=== PATIENT | female | born 2005 | race Caucasian/White ===

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

== ENCOUNTER 2025-09-01 15:50 | Emergency (ER) | payer OTHER, SELFPAY ==
[2025-09-01 16:23] VITALS: BP 147/87; PULSE 87; RESP 16; TEMP 37; O2SAT 98; BMI 47.9
--- OUTSIDE RECORDS SUMMARY | 2025-09-01 16:35 | XMS_ITS | Clinical Summary ---
Author Organization [facility] Address [address] [place] [address] Phone Care Team Providers Care Gusset Stitcher Name Role Phone James Helm MD Primary Care Physician [ ] Conditions or Problems No information available. Medications No information available. Medications Administered No information available. Allergies, Adverse Reactions, Alerts No information available. Results No information available. Plan of Care No information available. Procedures No information available. Vital Signs No information available. Immunizations No information available. Advance Directives No information available.
--- OUTSIDE RECORDS SUMMARY | 2025-09-01 16:35 | XMS_ITS | Clinical Summary ---
[facility] Address [address] [place] [address] Care Team Providers Care Checkout Operator Name Role Phone Provider, No Known Primary Care Provider Unavail able Allergies Active Allergy Reactions Criticality Noted Date Comments Penicillins Hives 07/14/2024 Medications famotidine (PEPCID) 20 MG tablet Take 1 tablet by mouth Daily. 04/03/2024 Active Vit-Fe Fumarate-FA ( vitamin 27-0.8) 27-0.8 MG tablet tablet Take 1 tablet by mouth Daily. Active Active Problems Problem Noted Date Diagnosed Date Problem with growth not found 07/17/2024 Social History Tobacco Use Types Packs/Day Years Used Date Smoking Tobacco: Never Smokeless Tobacco: Never Tobacco Cessation:Counseling Given: Not Answered Alcohol Use Standard Drinks/Week Comments Never 0 (1 standard drink = 0.6 oz pur e alcohol) Comments No Sex and Gender Information Value Date Recorded Sex Assigned at Not on file Legal Sex Female 5:21 PM EDT Gender Identity Not on file Sexual Orientation Not on file Last Filed Vital Signs Vital Sign Reading Time Taken Comments Blood Pressure 137/77 07/14/2024 11:26 AM EDT Pulse - - Temperature - - Respiratory Rate - - Oxygen Saturation - - Inhaled Oxygen Concentration - - Weight 134 kg (295 lb) 07/14/2024 11:26 AM EDT Height 167.6 cm (5' 6 ) 07/14/2024 11:29 AM EDT Body Mass Index 47.61 07/14/2024 11:26 AM EDT Plan of Treatment Health Maintenance Due Date Last Done Comments MENINGOCOCCAL B VACCINE (1 of 2 - Standard) 2021 ANNUAL PHYSICAL 07/02/2024 CHLAMYDIA SCREENING 07/02/2024 HEPATITIS C SCREENING 07/02/2024 INFLUENZA VACCINE 05/08/2025 08/24/2008 TDAP/TD VACCINES (2 - Td or Tdap) 07/19/2026 07/19/2016 Pneumococcal Vaccine 0-49 Completed 2007, 01/14/2007, 03/09/2006, Additional history exists MENINGOCOCCAL VACCINE Aged Out 07/19/2016 No aleks jean eligible based on patient's age to complete this topic HPV VACCINES Completed 05/14/2018, 01/23/2017 Insurance [facility] Care Teams Checkout Operator Relationship Specialty Start Date End Date Provider, No Known [facility] [place] [address] PCP - General 07/02/24
--- NOTE | 2025-09-01 16:44 | ED_ITS ---
<Statement entered by Colton Mojica MD - 09/02/25 11:19> I was consulted by the ROBE, and we discussed the complexity of the problems being addressed. I approve the treatment and management plan for this patient's care in the emergency department, thus performing a substantive portion of the medical decision making. Colton Mojica MD Discharge Plan Disposition Chief Complaint: Abdominal Pain Prescriptions Prescriptions: No Action promethazine 25 mg tablet 25 mg PO TIDP PRN (Reason: Nausea And Vomiting) Patient Comments: TAKE 1 TABLET BY MOUTH THREE TIMES DAILY NEEDED FOR NAUSEA AND VOMITING sulfamethoxazole-trimethoprim [Bactrim DS] 800-160 mg tablet 1 tab PO BID 7 Days Qty: 14 0RF cephalexin 500 mg capsule 1,000 mg PO BID 7 Days Qty: 28 0RF ondansetron 4 mg tablet,disintegrating 4 mg PO Q8H PRN (Reason: nausea and vomiting) 4 Days Qty: 12 0RF famotidine [Pepcid] 20 mg tablet 20 mg PO DAILY Qty: 30 0RF cefdinir 300 mg capsule 300 mg PO BID 7 Days Qty: 14 0RF Referrals Follow up/Referrals: Provider,Referral, [Primary Care Provider, Medical] - See instructions Instructions Patient Instructions: DI for Acute Abdominal Pain Print Language Print Language: Swedish Discharge ED Provider: Colton Mojica General Adult HPI <Rylie Reyes (ED), VENDING MACHINE TECHNICIAN - Last Filed: 09/01/25 18:26> General Chief complaint: Abdominal Pain Stated complaint: abdominal pain,back pain,headaches Time Seen by Provider: 09/01/25 16:31 Mode of Arrival: Ambulatory Source of Information: Patient Description of Symptoms (Recalled from ER Triage Doc. by RN): pt to the ED with bilateral flank/abdominal pain x 3 weeks. pt describes it as a stabbing pain that comes and goes. pt also reports an intermitten headache over the last 2 days. pt also stated she took a test kast night and it was positive. History of Present Illness HPI narrative: 20-year-old female presents to the ED with complaint of bilateral flank pain that is sore when she moves around and stretches . She says she does have a headache and nausea as well. No vomiting or diarrhea. She has had no urinary symptoms. She says she is she did take a test that was positive last night. . However she did not tell me in triage that she was the nursing staff actually told me. Related Data Home Medications ?Medication ?Instructions ?Recorded ?Confirmed promethazine 25 mg tablet 25 mg PO TIDP PRN Nausea And 04/02/24 04/02/24 Vomiting Previous Rx's ?Medication ?Instructions ?Recorded cefdinir 300 mg capsule 300 mg PO BID 7 days #14 cap s 04/03/24 famotidine 20 mg tablet (Pepcid) 20 mg PO DAILY #30 ta bs 04/03/24 ondansetron 4 mg disintegrating 4 mg PO Q8H PRN nausea and 04/03/24 tablet vomiting 4 days #12 tabs cephalexin 500 mg capsule 1,000 mg (2 x 500 mg) PO BID 7 09/09/24 days #28 caps sulfamethoxazole 800 1 tab PO BID 7 days #14 tabs 09/09/24 mg-trimethoprim 160 mg tablet (Bactrim DS) Allergies Allergy/AdvReac Type Severity Reaction Status Date / Time Penicillins Allergy Verified 02/27/24 15:31 PFS <Rylie Reyes (ED), VENDING MACHINE TECHNICIAN - Last Filed: 09/01/25 18:26> PFS Disclaimer: The information contained in this section may have been updated after the patient was seen, as this information can be updated by other users. Medical History Urinary tract infection Migraine Hormone imbalance Surgical History No significant past surgical history Family History Grandmother Cancer Other Diabetes Social History Smoking Status: Never smoker alcohol intake: former current occupational status: unemployed Travel in the last 8 weeks?: None Have you lived/traveled outside US in past 30 days?: Yes Contact w/someone who lives/traveled outside US past 30 days?: No Exposure to someone with infectious disease in past 14 days?: No Do you have a fever (greater than 100.4 F or 38 C)?: Yes Have you tested positive for COVID-19?: No Exposed to someone with COVID-19 in past 14 days?: No Do you have a sore throat?: Yes Do you have a cough?: Yes Do you have any weakness?: Yes Do you have any diarrhea?: No Are you experiencing any unusual bleeding?: No Do you have any muscle aches/pain?: No Do you have any abdominal pain?: No Are you experiencing loss of taste or smell?: No Other Medical History Have you received the Flu Vaccine for this season: No Have you received the Pneumonia Vaccine: No <Rylie Reyes (ED), VENDING MACHINE TECHNICIAN - Last Filed: 09/01/25 18:26> ROS Obtained: Yes Systems reviewed as appropriate & no additional complaints except as documented Constitutional Constitutional: Reports as per HPI Physical Exam <Rylie Reyes (ED), VENDING MACHINE TECHNICIAN - Last Filed: 09/01/25 18:26> General General appearance: alert and in no apparent distress Head Head exam: normocephalic Eye Eye exam: Present PERRL and EOMI ENT ENT exam: Present normal oropharynx and mucous membranes moist Neck Neck exam: Present full ROM and trachea midline Respiratory Respiratory exam: Present normal lung sounds bilaterally Cardiovascular Cardiovascular exam: Present regular rate, normal rhythm, normal heart sounds, +S1 and +S2 Abdominal Exam Abdominal exam: Present soft and normal bowel sounds Extremities Exam Extremities exam: Present normal inspection, full ROM and normal capillary refill Back Exam Back exam: Present normal inspection Neurological Exam Neurological exam: Present alert and oriented X3 Skin Skin exam: Present warm and dry Medical Decision Making <Rylie Reyes (ED), VENDING MACHINE TECHNICIAN - Last Filed: 09/01/25 18:26> Medical Records Screening: Per USPSTF and CDC recommendations, given the prevalence of disease in our region, it is our hospital?s policy to screen for HIV and viral Hepatitis for all patients aged 18 and over and those with ongoing risk factors. Vik Inquiry Pt receiving controlled substance: No Vik was queried for this patient: No Vital Signs: 09/01/25 16:23 Temperature 98.6 F Temperature Source Oral Pulse Rate [Left Radial] 87 Respiratory Rate 16 Blood Pressure [Right Arm] 147/87 H Blood Pressure Mean [Right Arm] 107 Blood Pressure Source [Right Arm] Automatic Cuff Blood Pressure Position [Right Arm] Sitting 02 Sat by Pulse Oximetry 98 Oxygen Delivery Method Room Air Lab Data Lab Results 09/01/25 16:30: Urine Color Yellow, Urine Appearance Sl cloudy, Urine pH 6.5, Ur Specific [place] 1.020, Urine Protein Negative, Urine Glucose (UA) Negative, Urine Ketones Negative, Urine Blood Negative, Urine Nitrate Negative, Urine Bilirubin Negative, Urine Urobilinogen 0.2, Ur Leukocyte Esterase Negative, Urine RBC 10-20, Urine WBC 20-50, Ur Squamous Epith Cells 50-100, Urine Bacteria 4+ 09/01/25 16:41: SARS-CoV-2 (PCR) Not detected, Influenza A Untype (PCR) Not detected, Influenza Type B (PCR) Not detected 09/01/25 16:49: WBC 9.9, RBC 5.22, Hgb 14.4, Hct 42.5, MCV 81.4, MCH 27.6, MCHC 33.9, RDW 13.1, Plt Count 229, MPV 10.9 H, Neut % (Auto) 71.2, Lymph % (Auto) 21.5, [place] % (Auto) 6.2, Eos % (Auto) 0.6, Baso % (Auto) 0.4, Neut # (Auto) 7.1, Lymph # (Auto) 2.1, [place] # (Auto) 0.6, Eos # (Auto) 0.1, Baso # (Auto) 0.0, S odium 134 L, Potassium 4.2, Chloride 103, Carbon Dioxide 21 L, Anion Gap 14.2, BUN 10, Creatinine 0.60, Estimated Creat Clear 140, Estimated GFR 127, Est GFR ( Amer) 154, Glucose 83, Calcium 9.5, Magnesium 2.0, Total Bilirubin 1.3, AST 41 H, ALT 23, Alkaline Phosphatase 64, Total Protein 8.5 H, Albumin 5.1 H, G lobulin 3.4 H, Albumin/Globulin Ratio 1.5, Lipase 56, HCG, Quant [id number] H 09/01/25 16:49 09/01/25 16:49 Orders (Tests/Meds): ED MEDICATIONS Generic Name Dose Route Start Last Admin Trade Name Freq PRN Reason Stop Dose Admin Sodium Chloride 8 ml 09/01/25 16:36 Sodium Chloride 0.9% 10ml Vial IV 10/01/25 16:35 NEEDED PRN dilute pepcid Discontinued Medications Generic Name Dose Route Start Last Admin Trade Name Freq PRN Reason Stop Dose Admin Ondansetron HCl 4 mg 09/01/25 16:41 09/01/25 16:57 Ondansetron 4mg/2ml Vial IV 09/01/25 16:42 4 mg ONCE ONE Administration ORDERS Category Date Time Status POCUS Point of Care (ER Only) Stat Exams 09/01/25 18:14 Ordered Beta HCG, Quant [HCG,Quantitative] Stat Lab 09/01/25 16:49 Completed CBC [Complete Blood Count Auto Diff] Stat Lab 09/01/25 16:49 Completed Comprehensive Metabolic Panel Stat Lab 09/01/25 16:49 Completed Lipase Stat Lab 09/01/25 16:49 Completed Magnesium Stat Lab 09/01/25 16:49 Completed Rapid PCR Covid and Flu A/B Stat Lab 09/01/25 16:41 Completed Urinalysis and Microscopic Stat Lab 09/01/25 16:30 Completed Urine Culture Stat Micro 09/01/25 16:30 Received Medical Decision Narrative: patient is a 20-year-old female presenting to the emergency department for evaluation of bilateral flank pain. Patient is hemodynamically stable and nontoxic-appearing upon arrival, afebrile. Differential diagnosis includes musculoskeletal pain, related pain. Workup will be conducted with hematologic labs. Initial inventions include crystalloid bolus, analgesics, antibiotics. Initial workup reviewed by me hematologic labs are remarkable for Normal white count at 9.9, normal H&H, sodium was 134 just slightly low normal BUN and creatinine urine showed 50-100 squamous cells and 4+ bacteria and no blood in her urine. I feel like with the flank pain if this was a kidney stone she would have blood in her urine. I feel like if this was a problem with an early loss she did have blood in her urine as well. She has no pelvic pain which also has been attempted and that she is having no early loss symptoms. she is not having any UTI symptoms. Her white count is normal and other lab work is reassuring. Initially was going to get a scan to make sure her kidneys were fine but was unable to do that as she is and I do not want to take that risk. With being so early with her test just being positive yesterday she would not be positive on ultrasound at this time., Patient to follow-up with her PCP for new OB. Will give treatment for UTI since she does have a positive . Dr. Mojica did a bedside ultrasound and had confirmation of good heart rate and IUP. Patient is safe for discharge home she will follow-up with Dr. De Leon or Dr. Agarwal outpatient. <Colton Mojica MD - Last Filed: 09/01/25 18:26> Vital Signs: 09/01/25 16:23 Temperature 98.6 F Temperature Source Oral Pulse Rate [Left Radial] 87 Respiratory Rate 16 Blood Pressure [Right Arm] 147/87 H Blood Pressure Mean [Right Arm] 107 Blood Pressure Source [Right Arm] Automatic Cuff Blood Pressure Position [Right Arm] Sitting 02 Sat by Pulse Oximetry 98 Oxygen Delivery Method Room Air Lab Data Lab Results 09/01/25 16:30: Urine Color Yellow, Urine Appearance Sl cloudy, Urine pH 6.5, Ur Specific [place] 1.020, Urine Protein Negative, Urine Glucose (UA) Negative, Urine Ketones Negative, Urine Blood Negative, Urine Nitrate Negative, Urine Bilirubin Negative, Urine Urobilinogen 0.2, Ur Leukocyte Esterase Negative, Urine RBC 10-20, Urine WBC 20-50, Ur Squamous Epith Cells 50-100, Urine Bacteria 4+ 09/01/25 16:41: SARS-CoV-2 (PCR) Not detected, Influenza A Untype (PCR) Not detected, Influenza Type B (PCR) Not detected 09/01/25 16:49: WBC 9.9, RBC 5.22, Hgb 14.4, Hct 42.5, MCV 81.4, MCH 27.6, MCHC 33.9, RDW 13.1, Plt Count 229, MPV 10.9 H, Neut % (Auto) 71.2, Lymph % (Auto) 21.5, [place] % (Auto) 6.2, Eos % (Auto) 0.6, Baso % (Auto) 0.4, Neut # (Auto) 7.1, Lymph # (Auto) 2.1, [place] # (Auto) 0.6, Eos # (Auto) 0.1, Baso # (Auto) 0.0, S odium 134 L, Potassium 4.2, Chloride 103, Carbon Dioxide 21 L, Anion Gap 14.2, BUN 10, Creatinine 0.60, Estimated Creat Clear 140, Estimated GFR 127, Est GFR ( Amer) 154, Glucose 83, Calcium 9.5, Magnesium 2.0, Total Bilirubin 1.3, AST 41 H, ALT 23, Alkaline Phosphatase 64, Total Protein 8.5 H, Albumin 5.1 H, G lobulin 3.4 H, Albumin/Globulin Ratio 1.5, Lipase 56, HCG, Quant [id number] H Orders (Tests/Meds): ED MEDICATIONS Generic Name Dose Route Start Last Admin Trade Name Freq PRN Reason Stop Dose Admin Sodium Chloride 8 ml 09/01/25 16:36 Sodium Chloride 0.9% 10ml Vial IV 10/01/25 16:35 NEEDED PRN dilute pepcid Discontinued Medications Generic Name Dose Route Start Last Admin Trade Name Freq PRN Reason Stop Dose Admin Ondansetron HCl 4 mg 09/01/25 16:41 09/01/25 16:57 Ondansetron 4mg/2ml Vial IV 09/01/25 16:42 4 mg ONCE ONE Administration ORDERS Category Date Time Status POCUS Point of Care (ER Only) Stat Exams 09/01/25 18:14 Ordered Beta HCG, Quant [HCG,Quantitative] Stat Lab 09/01/25 16:49 Completed CBC [Complete Blood Count Auto Diff] Stat Lab 09/01/25 16:49 Completed Comprehensive Metabolic Panel Stat Lab 09/01/25 16:49 Completed Lipase Stat Lab 09/01/25 16:49 Completed Magnesium Stat Lab 09/01/25 16:49 Completed Rapid PCR Covid and Flu A/B Stat Lab 09/01/25 16:41 Completed Urinalysis and Microscopic Stat Lab 09/01/25 16:30 Completed Urine Culture Stat Micro 09/01/25 16:30 Received Procedures <Colton Mojica MD - Last Filed: 09/01/25 18:26> Limited Ultrasound Indication:: Limited OB ultrasound Indication: Positive home pression test, pelvic pain Identified structures: -Uterus -Left adnexa -Right adnexa -Pouch of [place] Findings: Uterus: Definitive IUP FHR: 158 Right adnexa: -Normal Left adnexa: -Normal Cul de sac: -free fluid absent Impression: -IUP: Present - heart rate: 158 -Ectopic : Absent -Free fluid: Absent Images were saved to permanent archive The study was technically adequate CPT Transabdominal: 52703-06 This study was performed by fl, Colton Mojica MD, and I personally interpreted all images/videos. Based on my clinical judgement, these images were adequate and did not necessitate further imaging. Critical Care <Rylie Reyes (ED), VENDING MACHINE TECHNICIAN - Last Filed: 09/01/25 18:26> Critical Care Time Critical Care Time: No
[2025-09-01 16:46] LABS: Microscopic, Urine URINE MICROSCOPIC (MICROSCOPIC)
[2025-09-01 16:48] LABS: Coronavirus 19, PCR Not Detected (NotDetected); Influenza A, PCR Not Detected (NotDetected); Influenza B, PCR Not Detected (NotDetected)
[2025-09-01 16:54] LABS: Bilirubin,Urine Negative (Negative); Color,Urine YELLOW (Yellow); Glucose,Urine (UA) Negative (Negative); Ketones,Urine Negative (Negative); Leukocyte Esterase,Urine Negative (Negative); PH,Urine 6.5 (5.0-8.5); Protein,Urine Negative (Negative); Specific Gravity, Urine 1.020 (1.005-1.030); Urobilinogen,Urine 0.2 EU/dl (0.2)
[2025-09-01 16:57] LABS: Hematocrit 42.5 % (37.0-47.0); Hemoglobin 14.4 g/dL (12.2-16.2); Immature Granulocytes % 0.1 %; Mean Corpuscular HGB Conc 33.9 g/dL (31.8-35.4); Mean Corpuscular Hemoglobin 27.6 pg (27.0-31.2); Mean Corpuscular Volume 81.4 fl (81-99); Nucleated Red Blood Cells % 0 %; Platelet Count 229 K/mm3 (142-424); Red Blood Count 5.22 M/mm3 (4.20-5.40); Red Cell Distribution Width-SD 38.5 fL; White Blood Count 9.9 K/mm3 (4.5-13.0)
[2025-09-01] MEDS: ONDANSETRON 4MG/2ML VIAL 4 MG IV (16:57)
--- NOTE | 2025-09-01 16:59 | ECG_ITS ---
APPROVED REPORT Exam: Resting ECG HR:98 bpm ECG Measurements Heart Rate 98 AXES OR 164 P 30 QRSd 96 QRS 68 QT 333 T 21 QTc 388 Conclusion SINUS RHYTHM NORMAL ECG Electronically signed by : RHIANNON CORTEZ, 09/03/2025 14:11:03
[2025-09-01 17:10] LABS: Lipase 56 U/L (23-300); Magnesium 2.0 mg/dl (1.6-2.3)
[2025-09-01 17:11] LABS: Alanine Aminotransferase 23 U/L (12-78); Albumin Level 5.1 g/dl (3.5-5.0); Albumin/Globulin Ratio 1.5 (1.1-1.8); Alkaline Phosphatase 64 U/L (38-126); Anion Gap 14.2 mEq/L (5-15); Aspartate Amino Transferase 41 U/L (14-36); Bilirubin,Total 1.3 mg/dl (0.2-1.3); Blood Urea Nitrogen 10 mg/dl (7-17); Calcium 9.5 mg/dl (8.4-10.2); Carbon Dioxide 21 mmol/L (22.0-30.0); Chloride 103 mmol/L (98-107); Creatinine Clearance Estimated 140 mL/min (50-200); Creatinine,Serum 0.60 mg/dl (0.52-1.04); Estimated Glomerular Filt Rate 127 ml/min (>60); GFR (African American) 154 ML/MIN (>60); Globulin 3.4 g/dL (1.3-3.2); Glucose 83 mg/dl (74-100); Potassium 4.2 mmoL/L (3.5-5.1); Sodium 134 mmol/L (136-145); Total Protein,Serum 8.5 g/dl (6.3-8.2)
[2025-09-01 17:18] LABS: Bacteria,Urine 4+ /lpf; Squamous Epithelial Cell,Urine 50-100 #/hpf (0-5); WBC,Urine 20-50 #/hpf (0-3)
[2025-09-01 19:28] VITALS: BP 119/87; PULSE 83; RESP 18; TEMP 36.6; O2SAT 100
== END 2025-09-01 19:37 | disposition home or self-care (01) ==
PROVIDERS: Nurse Practitioner; Emergency Provider Student in an Organized Health Care Education/Training Program
DX: O26.891 Other specified pregnancy related conditions, first trimester (principal); R10.9 Unspecified abdominal pain; R51.9 Headache, unspecified; R11.0 Nausea; Z3A.01 Less than 8 weeks gestation of pregnancy
CPT/HCPCS: 80053; 81001; 83690; 83735; 84702; 85025; 87086; 87636; 93005; 96374; 99285; J2405